=== PATIENT | male | born 1955 | race African-American/Black ===

== ENCOUNTER 2017-08-28 16:20 | Emergency (ER) | payer OTHER ==
[~2017-08-28] VITALS: Ht 175.3 cm; Wt 97.0 kg
[2017-08-28] MEDS ORDERED: LISI-660 PO (16:24)
[2017-08-28] MEDS ORDERED: POTA99TA15 PO (16:24)
[2017-08-28] MEDS ORDERED: KETOROLAC TROMETHAMINE 30 MG/ML VIAL IM ONE (17:00)
[2017-08-28 17:15] VITALS: BP 128/87
== END 2017-08-28 17:37 | disposition home or self-care (01) ==
LOC: EMS 16:21
DX: S29.012A Strain of muscle and tendon of back wall of thorax, initial encounter (principal); G43.909 Migraine, unspecified, not intractable, without status migrainosus; Z90.49 Acquired absence of other specified parts of digestive tract; X58.XXXA Exposure to other specified factors, initial encounter; Y93.89 Activity, other specified; Y92.89 Other specified places as the place of occurrence of the external cause; Y99.9 Unspecified external cause status
CPT/HCPCS: 96372; 99283; J1885